=== PATIENT | male | born 1990 | race African-American/Black ===

== ENCOUNTER → 2018-02-14 | Outpatient (CLI) | payer BC, OTHER | LOC: MC.RAD 09:55 | DX: N63.41 Unspecified lump in right breast, subareolar (principal) ==

== ENCOUNTER → 2019-10-16 | Outpatient (CLI) | payer OTHER | LOC: COL.RAD 11:43 | DX: Z00.5 Encounter for examination of potential donor of organ and tissue (principal); M43.28 Fusion of spine, sacral and sacrococcygeal region | CPT/HCPCS: Q9967 ==

== ENCOUNTER → 2020-03-26 | Outpatient (CLI) | payer OTHER | LOC: COL.RAD 07:30 | DX: R10.11 Right upper quadrant pain (principal); R79.89 Other specified abnormal findings of blood chemistry ==